=== PATIENT | female | born 1990 | race Two or more races ===

== ENCOUNTER 2021-04-27 20:20 | Emergency (ER) | payer MEDICAID, OTHER ==
--- NOTE | 2021-04-27 20:45 | EDM.PDOC ---
ED HPI GENERAL MEDICAL PROBLEM - General Chief Complaint: Genitourinary Problem Stated Complaint: [facility] Time Seen by Provider: 04/27/21 20:23 Source of Information: Reports: Patient, EMS, RN Notes Reviewed History Limitations: Reports: No Limitations - History of Present Illness INITIAL COMMENTS - FREE TEXT/NARRATIVE: Patient is a 30-year-old female presenting to the emergency department with complaints of dysuria, urinary frequency, bladder spasms, and hematuria. Reports symptoms began around 1500 this afternoon. Reports that she had sexual intercourse last evening and does not void after sex. She had some mild back pain approximately 4 days ago, however believes this was related to working a 10-hour shift. This has resolved. She has had no fever, chills, nausea, or vomiting. Reports that she has had urinary tract infections in the past but it has been a couple years. - Related Data Allergies Allergy/AdvReac Type Severity Reaction Status Date / Time No Known Allergies Allergy Verified 04/27/21 20:28 Home Meds: Home Meds Cefdinir [Omnicef] 300 mg PO BID 7 Days #14 cap 04/27/21 [Rx] Phenazopyridine HCl [Pyridium] 200 mg PO Q8H PRN #5 tablet 04/27/21 [Rx] Past Medical History - Past Health History Medical/Surgical History: Denies Medical/Surgical History Social & Family History - Tobacco Use Tobacco Use Status *Q: Current Some Day Tobacco User Years of Tobacco use: 2 Packs/Tins Daily: 0.1 - Recreational Drug Use Recreational Drug Use: No ED ROS GENERAL - Review of Systems Review Of Systems: Comprehensive ROS is negative, except as noted in HPI. ED EXAM, RENAL/ - Physical Exam Exam: See Below General Appearance: Alert, WD/WN, No Apparent Distress Respiratory/Chest: No Respiratory Distress, Lungs Clear, Normal Breath Sounds, No Accessory Muscle Use, Chest Non-Tender Cardiovascular: Normal Peripheral Pulses, Regular Rate, Rhythm, No Edema, No Gallop, No JVD, No Murmur, No Rub GI/Abdominal: Normal Bowel Sounds, Soft, No Organomegaly, No Distention, No Abnormal Bruit, No Mass, Tender (Suprapubic tenderness.) Back Exam: Normal Inspection, Full Range of Motion. No: CVA Tenderness (L), CVA Tenderness (R) Neurological: Alert, Oriented, CN II-XII Intact, Normal Cognition, Normal Gait, Normal Reflexes, No Motor/Sensory Deficits Psychiatric: Normal Affect, Normal Mood Skin Exam: Warm, Dry, Intact, Normal Color, No Rash Course - Vital Signs Last Recorded V/S: Last Vital Signs Temp 98.5 F 04/27/21 20:25 Pulse 103 H 04/27/21 20:25 Resp 19 04/27/21 20:25 BP 154/99 H 04/27/21 20:25 Pulse Ox 99 04/27/21 20:25 - Orders/Labs/Meds Labs: Laboratory Tests 04/27/21 04/27/21 04/27/21 Range/Units 20:33 21:05 21:10 WBC 17.46 H (3.98-10.04) K/mm3 RBC 4.40 (3.98-5.22) M/mm3 Hgb 12.5 (11.2-15.7) gm/dl Hct 38.5 (34.1-44.9) % MCV 87.5 (79.4-94.8) fl MCH 28.4 (25.6-32.2) pg MCHC 32.5 (32.2-35.5) g/dl RDW Std Deviation 46.9 H (36.4-46.3) fL Plt Count 356 (182-369) K/mm3 MPV 9.9 (9.4-12.3) fl Neut % (Auto) 82.0 H (34.0-71.1) % Lymph % (Auto) 11.1 L (19.3-51.7) % [place] % (Auto) 6.2 (4.7-12.5) % Eos % (Auto) 0.3 L (0.7-5.8) Baso % (Auto) 0.2 (0.1-1.2) % Neut # (Auto) 14.31 H (1.56-6.13) K/mm3 Lymph # (Auto) 1.94 (1.18-3.74) K/mm3 [place] # (Auto) 1.08 H (0.24-0.36) K/mm3 Eos # (Auto) 0.06 (0.04-0.36) K/mm3 Baso # (Auto) 0.04 (0.01-0.08) K/mm3 Manual Slide Review Sodium 139 (136-145) mEq/L Potassium 3.4 L (3.5-5.1) mEq/L Chloride 102 (98-107) mEq/L Carbon Dioxide 26 (21-32) mEq/L Anion Gap 14.4 (5-15) BUN 11 (7-18) mg/dL Creatinine 0.7 (0.55-1.02) mg/dL Est Cr Clr Drug Dosing 102.40 mL/min Estimated GFR (MDRD) > 60 (>60) mL/min BUN/Creatinine Ratio 15.7 (14-18) Glucose 98 (70-99) mg/dL Calcium 8.8 (8.5-10.1) mg/dL Total Bilirubin 0.4 (0.2-1.0) mg/dL AST 24 (15-37) U/L ALT 38 (14-59) U/L Alkaline Phosphatase 73 (46-116) U/L Total Protein 8.2 (6.4-8.2) g/dl Albumin 4.0 (3.4-5.0) g/dl Globulin 4.2 gm/dL Albumin/Globulin Ratio 1.0 (1-2) Urine Color [place] H (Yellow) Urine Appearance Slt cloudy H (Clear) Urine pH 7.0 (5.0-8.0) Ur Specific [place] 1.010 (1.005-1.030) Urine Protein 2+ H (Negative) Urine Glucose (UA) Negative (Negative) Urine Ketones Negative (Negative) Urine Occult Blood 3+ H (Negative) Urine Nitrite Negative (Negative) Urine Bilirubin Negative (Negative) Urine Urobilinogen 0.2 (0.2-1.0) Ur Leukocyte Esterase 3+ H (Negative) Urine RBC 40-50 H (0-5) /hpf Urine WBC 30-40 H (0-5) /hpf Ur Squamous Epith Cells 5-10 H (0-5) /hpf Urine Bacteria Few (FEW) /hpf Urine Mucus Few (FEW) /hpf Meds: Medications Discontinued Medications Generic Name Dose Route Start Last Admin Trade Name Freq PRN Reason Stop Dose Admin Ceftriaxone Sodium 1 gm/ 0 gm 04/27/21 21:01 04/27/21 21:16 Lidocaine HCl 2.1 ml IM 04/27/21 21:02 2.1 inj ONETIME ONE Administration Phenazopyridine HCl 190 mg 04/27/21 21:01 04/27/21 21:16 Phenazopyridine 95 Mg Tab PO 04/27/21 21:02 190 mg ONETIME ONE Administration - Re-Assessments/Exams Free Text/Narrative Re-Assessment/Exam: 04/27/21 21:45 Hematology significant for WBC elevated at 17.46, potassium minimally low at 3.4. Urinalysis is significant for 2+ protein, 3+ occult blood, 3+ leukocyte esterase, 40-50 RBCs, and 30-40 WBCs. Patient has received Pyridium as well as Rocephin IM. She will be discharged home on a prescription for cefdinir which she may start tomorrow. I will also send prescription for Pyridium to be used for no more than 2 days. Recommend increase fluid intake. Discharge instructions as documented. Departure - Departure Time of Disposition: 21:45 Disposition: Home, Self-Care 01 Condition: Good Clinical Impression: UTI, Urinary tract infectious disease - Discharge Information *PRESCRIPTION DRUG MONITORING PROGRAM REVIEWED*: No *COPY OF PRESCRIPTION DRUG MONITORING REPORT IN PATIENT YOSHI: No Prescriptions: Cefdinir [Omnicef] 300 mg PO BID 7 Days #14 cap Phenazopyridine HCl [Pyridium] 200 mg PO Q8H PRN #5 tablet PRN Reason: Dysuria Instructions: Urinary Tract Infection, Adult Referrals: PCP,None [Primary Care Provider] - Forms: ED Department Discharge Additional Instructions: You were seen in the emergency department today for painful urination, frequency of urination, and blood in your urine. Work-up included urinalysis and blood work. Results of your work-up show that you have urinary tract infection. While in the ER, you received a dose of Pyridium which treats bladder pain as well as an injection of Rocephin which is an antibiotic. Prescriptions for Pyridium and [facility]efdinir [facility] Use these as prescribed. Recommend increased fluid intake. Symptoms should improve significantly over the next 24 to 48 hours. Return to ER for any new or worsening symptoms. Sepsis Event Note (ED) - Evaluation Sepsis Screening Result: No Definite Risk
[2021-04-27] MEDS ORDERED: cefTRIAXone 1 GM, Lidocaine 1% 2.1 ML IM ONE ×2 (21:01)
[2021-04-27] MEDS ORDERED: Phenazopyridine 95 MG Tab PO ONE (21:01)
== END 2021-04-27 22:05 | disposition home or self-care (01) ==
LOC: JD.ED 20:20
DX: N39.0 Urinary tract infection, site not specified (principal); Z72.0 Tobacco use
CPT/HCPCS: 36415; 80053; 81001; 85025; 87086; 96372; 99284; A9270; J0696; 99283

== ENCOUNTER 2021-05-05 07:28 | Emergency (ER) | payer SELFPAY ==
--- NOTE | 2021-05-05 08:04 | EDM.PDOC ---
ED HPI GENERAL MEDICAL PROBLEM - General Chief Complaint: Genitourinary Problem Stated Complaint: POSS UTI Time Seen by Provider: 05/05/21 07:46 Source of Information: Reports: Patient History Limitations: Reports: No Limitations - History of Present Illness INITIAL COMMENTS - FREE TEXT/NARRATIVE: The patient presents with dysuria. She was seen here over a week ago for the same. Her WBC was elevated at that time and she had a UTI. She was put on cefdinir and pyridium. She did get better for a few days and then the dysuria did come back. She has urinary urgency but only goes a little. She has no fever, chills, cough, chest pain, abdominal pain, nausea or vomiting. She did have mild low back pain that was mostly to her left buttock. She has no history of kidney stones. Onset: Gradual Duration: Day(s): (2) Location: Reports: Other (dysuria) Quality: Reports: Burning Severity: Moderate Improves with: Reports: None Worsens with: Reports: None Associated Symptoms: Reports: No Other Symptoms Vaginal Pain Score (Numeric/FACES): 10 - Related Data Allergies Allergy/AdvReac Type Severity Reaction Status Date / Time No Known Allergies Allergy Verified 05/05/21 07:43 Home Meds: Home Meds Ciprofloxacin HCl [Cipro] 500 mg PO BID #14 tablet 05/05/21 [Rx] Hydrocodone/Acetaminophen [Hydrocodone-Acetamin 5-325 mg] 1 - 2 each PO Q6H PRN #10 tablet 05/05/21 [Rx] Past Medical History - Past Health History Medical/Surgical History: Denies Medical/Surgical History Musculoskeletal History: Reports: Back Pain, Chronic Other Musculoskeletal History: scholiosis Social & Family History - Tobacco Use Tobacco Use Status *Q: Never Tobacco User Second Hand Smoke Exposure: No - Caffeine Use Caffeine Use: Reports: Coffee, Energy Drinks, Soda - Recreational Drug Use Recreational Drug Use: No ED ROS GENERAL - Review of Systems Review Of Systems: See Below Constitutional: Reports: No Symptoms HEENT: Reports: No Symptoms Respiratory: Reports: No Symptoms Cardiovascular: Reports: No Symptoms Endocrine: Reports: No Symptoms GI/Abdominal: Reports: No Symptoms : Reports: Dysuria. Denies: Flank Pain Musculoskeletal: Reports: Back Pain (Left lower near buttock) ED EXAM, GI/ABD - Physical Exam Exam: See Below Exam Limited By: No Limitations General Appearance: Alert, No Apparent Distress Ears: Normal External Exam Nose: Normal Inspection Head: Atraumatic, Normocephalic Neck: Normal Inspection Respiratory/Chest: No Respiratory Distress, Lungs Clear, Normal Breath Sounds Cardiovascular: Regular Rate, Rhythm, No Edema, No Murmur GI/Abdominal Exam: Soft, Non-Tender, No Organomegaly, No Mass Back Exam: Normal Inspection Extremities: Normal Inspection Course - Vital Signs Last Recorded V/S: Last Vital Signs Temp 96.9 F 05/05/21 07:42 Pulse 74 05/05/21 07:42 Resp 20 05/05/21 07:42 BP 119/90 05/05/21 07:42 Pulse Ox 100 05/05/21 07:42 - Orders/Labs/Meds Orders: Active Orders 24 hr Category Date Time Status COMPREHENSIVE METABOLIC PN,CMP [CHEM] Stat Lab 05/05/21 09:10 Results CULTURE URINE [MREF] Stat Lab 05/05/21 09:00 Received LIPASE [CHEM] Stat Lab 05/05/21 09:10 Results Labs: Laboratory Tests 05/05/21 05/05/21 05/05/21 Range/Units 09:00 09:10 09:10 WBC 11.78 H (3.98-10.04) K/mm3 RBC 4.36 (3.98-5.22) M/mm3 Hgb 12.3 (11.2-15.7) gm/dl Hct 38.2 (34.1-44.9) % MCV 87.6 (79.4-94.8) fl MCH 28.2 (25.6-32.2) pg MCHC 32.2 (32.2-35.5) g/dl RDW Std Deviation 46.8 H (36.4-46.3) fL Plt Count 393 H (182-369) K/mm3 MPV 9.7 (9.4-12.3) fl Neut % (Auto) 72.7 H (34.0-71.1) % Lymph % (Auto) 18.2 L (19.3-51.7) % [place] % (Auto) 7.3 (4.7-12.5) % Eos % (Auto) 1.2 (0.7-5.8) Baso % (Auto) 0.3 (0.1-1.2) % Neut # (Auto) 8.57 H (1.56-6.13) K/mm3 Lymph # (Auto) 2.14 (1.18-3.74) K/mm3 [place] # (Auto) 0.86 H (0.24-0.36) K/mm3 Eos # (Auto) 0.14 (0.04-0.36) K/mm3 Baso # (Auto) 0.04 (0.01-0.08) K/mm3 Sodium 138 (136-145) mEq/L Potassium 3.8 (3.5-5.1) mEq/L Chloride 103 (98-107) mEq/L Carbon Dioxide 25 (21-32) mEq/L Anion Gap 13.8 (5-15) BUN 12 (7-18) mg/dL Creatinine 0.6 (0.55-1.02) mg/dL Est Cr Clr Drug Dosing 14.86 mL/min Estimated GFR (MDRD) > 60 (>60) mL/min BUN/Creatinine Ratio 20.0 H (14-18) Glucose 96 (70-99) mg/dL Calcium 8.8 (8.5-10.1) mg/dL Total Bilirubin 0.3 (0.2-1.0) mg/dL AST 22 (15-37) U/L Alkaline Phosphatase 76 (46-116) U/L Total Protein 8.0 (6.4-8.2) g/dl HCG, Qual (NEGATIVE) Urine Color Yellow (Yellow) Urine Appearance Clear (Clear) Urine pH 6.0 (5.0-8.0) Ur Specific [place] 1.025 (1.005-1.030) Urine Protein 1+ H (Negative) Urine Glucose (UA) Trace H (Negative) Urine Ketones Negative (Negative) Urine Occult Blood 2+ H (Negative) Urine Nitrite Positive H (Negative) Urine Bilirubin Negative (Negative) Urine Urobilinogen 1.0 (0.2-1.0) Ur Leukocyte Esterase 3+ H (Negative) Urine RBC 20-30 H (0-5) /hpf Urine WBC 30-40 H (0-5) /hpf Ur Squamous Epith Cells 0-5 (0-5) /hpf Amorphous Sediment Few H (NOT SEEN) /hpf Urine Bacteria Moderate H (FEW) /hpf Urine Mucus Not seen (FEW) /hpf 05/05/21 Range/Units 09:10 WBC (3.98-10.04) K/mm3 RBC (3.98-5.22) M/mm3 Hgb (11.2-15.7) gm/dl Hct (34.1-44.9) % MCV (79.4-94.8) fl MCH (25.6-32.2) pg MCHC (32.2-35.5) g/dl RDW Std Deviation (36.4-46.3) fL Plt Count (182-369) K/mm3 MPV (9.4-12.3) fl Neut % (Auto) (34.0-71.1) % Lymph % (Auto) (19.3-51.7) % [place] % (Auto) (4.7-12.5) % Eos % (Auto) (0.7-5.8) Baso % (Auto) (0.1-1.2) % Neut # (Auto) (1.56-6.13) K/mm3 Lymph # (Auto) (1.18-3.74) K/mm3 [place] # (Auto) (0.24-0.36) K/mm3 Eos # (Auto) (0.04-0.36) K/mm3 Baso # (Auto) (0.01-0.08) K/mm3 Sodium (136-145) mEq/L Potassium (3.5-5.1) mEq/L Chloride (98-107) mEq/L Carbon Dioxide (21-32) mEq/L Anion Gap (5-15) BUN (7-18) mg/dL Creatinine (0.55-1.02) mg/dL Est Cr Clr Drug Dosing mL/min Estimated GFR (MDRD) (>60) mL/min BUN/Creatinine Ratio (14-18) Glucose (70-99) mg/dL Calcium (8.5-10.1) mg/dL Total Bilirubin (0.2-1.0) mg/dL AST (15-37) U/L Alkaline Phosphatase (46-116) U/L Total Protein (6.4-8.2) g/dl HCG, Qual Negative (NEGATIVE) Urine Color (Yellow) Urine Appearance (Clear) Urine pH (5.0-8.0) Ur Specific [place] (1.005-1.030) Urine Protein (Negative) Urine Glucose (UA) (Negative) Urine Ketones (Negative) Urine Occult Blood (Negative) Urine Nitrite (Negative) Urine Bilirubin (Negative) Urine Urobilinogen (0.2-1.0) Ur Leukocyte Esterase (Negative) Urine RBC (0-5) /hpf Urine WBC (0-5) /hpf Ur Squamous Epith Cells (0-5) /hpf Amorphous Sediment (NOT SEEN) /hpf Urine Bacteria (FEW) /hpf Urine Mucus (FEW) /hpf - Re-Assessments/Exams Free Text/Narrative Re-Assessment/Exam: 05/05/21 08:03 I ordered a UA and some labs. 05/05/21 10:17 Her WBC was elevated at 11.78. Her CMP looks good. Her HCG is negative. Her UA shows a UTI again. I have ordered cultures. I will get her on cipro this time for a week. Departure - Departure Time of Disposition: 10:20 Disposition: Home, Self-Care 01 Condition: Good Clinical Impression: UTI, Urinary tract infectious disease - Discharge Information *PRESCRIPTION DRUG MONITORING PROGRAM REVIEWED*: No *COPY OF PRESCRIPTION DRUG MONITORING REPORT IN PATIENT YOSHI: No Prescriptions: Ciprofloxacin HCl [Cipro] 500 mg PO BID #14 tablet Hydrocodone/Acetaminophen [Hydrocodone-Acetamin 5-325 mg] 1 - 2 each PO Q6H PRN #10 tablet PRN Reason: Pain Referrals: PCP,None [Primary Care Provider] - Alma Gunn, LAUREN [Nurse Practitioner] - 1 Week Forms: ED Department Discharge Additional Instructions: Drink plenty of fluids. Take the cipro 2 times per day for 7 days. Take tylenol or motrin as needed for pain. If that does not help, try they hydrocodone. Follow up with Alma Gunn in our clinic next week. Please return if you are worse. Sepsis Event Note (ED) - Focused Exam Vital Signs: Vital Signs Temp Pulse Resp BP Pulse Ox 05/05/21 07:42 96.9 F 74 20 119/90 100 - My Orders Last 24 Hours: My Active Orders 05/05/21 09:00 CULTURE URINE [MREF] Stat 05/05/21 09:10 COMPREHENSIVE METABOLIC PN,CMP [CHEM] Stat LIPASE [CHEM] Stat - Assessment/Plan Last 24 Hours: My Active Orders 05/05/21 09:00 CULTURE URINE [MREF] Stat 05/05/21 09:10 COMPREHENSIVE METABOLIC PN,CMP [CHEM] Stat LIPASE [CHEM] Stat
== END 2021-05-05 10:36 | disposition home or self-care (01) ==
LOC: JD.ED 07:28
DX: N39.0 Urinary tract infection, site not specified (principal)
CPT/HCPCS: 36415; 80053; 81001; 83690; 84703; 85025; 87086; 99283